=== PATIENT | female | born 1945 | race Caucasian/White ===

== ENCOUNTER → 2020-05-09 | Outpatient (CLI) | payer MEDICARE, OTHER ==
--- NOTE | 2020-05-09 09:51 | FL ---
EXAMINATION TYPE: FL sniff test without CXR DATE OF EXAM: 05/09/2020 COMPARISON: Outside chest x-ray May 02, 2020 HISTORY: Abnormal x-ray. Right diaphragm paralysis per order. History of right middle lobe collapse p er patient TECHNIQUE: Fluoroscopy assisted sniff test. FINDINGS: Fluoroscopic guidance was provided during the past procedure performed by myself. A total of 21 seconds of fluoroscopic time was utilized during the procedure and 27 spot images are acquired . There is elevated right hemidiaphragm. Dynamic imaging shows satisfactory motion of the left hemidiap hragm. Right hemidiaphragm shows absent motion. 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
== END | disposition home or self-care (01) ==
LOC: RADUSWWP 09:14
PROVIDERS: ATTEND Internal Medicine
DX: J98.6 Disorders of diaphragm (principal)
CPT/HCPCS: 76000

== ENCOUNTER → 2020-05-11 | Outpatient (CLI) | payer MEDICARE, OTHER ==
--- NOTE | 2020-05-11 19:49 | CT ---
EXAMINATION TYPE: CT chest w con DATE OF EXAM: 05/11/2020 COMPARISON: 05/02/2020 chest x-ray HISTORY: right pneumo CT DLP: 434.2 mGycm Automated exposure control for dose reduction was used. CONTRAST: CT scan of the chest is performed with IV Contrast, patient injected with 100 mL of Isovue 300. FINDINGS: LUNGS: There is marked elevation of the right hemidiaphragm with basilar consolidation likely in the basis of compressive atelectasis. No pneumothorax or pleural effusion. No localized area of suspiciou s for pneumonia. Pleural-based thickening at the left lung base laterally. MEDIASTINUM: There are no greater than 1 cm hilar or mediastinal lymph nodes. No pericardial effusi on is seen. Aorta of normal caliber. Coronary artery calcification. Correlate clinically. OTHER: Hypertrophic and degenerative changes of the spine. Low-attenuation throughout the liver sugg estive of hepatic steatosis. Inferior to the liver is a 4 mm nodule which is too small to characteriz e and could be followed on a short-term basis. IMPRESSION: 1. Marked right hemidiaphragm elevation with the basilar consolidation likely in the basis of hunter s[place] atelectasis. 2. Hepatic steatosis. There is an additional 4 mm soft tissue nodule just inferior to the lower [place] n of the liver too small to characterize and could be followed on short-term basis. 3. Coronary artery calcification.
== END | disposition home or self-care (01) ==
LOC: RADCTMAIN 16:41
PROVIDERS: ATTEND Internal Medicine
DX: J98.4 Other disorders of lung (principal); I25.10 Atherosclerotic heart disease of native coronary artery without angina pectoris
CPT/HCPCS: 82565; 84520; 71260; 36415; Q9967

== ENCOUNTER → 2022-09-23 | Outpatient (CLI) | payer MEDICARE, OTHER ==
--- NOTE | 2022-09-24 09:32 | MM ---
Reason for Exam: Screening (asymptomatic). Patient History: Menarche at age 13. First Full-Term at age 22. Postmenopausal. Risk Values: Loli 5 year model risk: 1.6%. NCI Lifetime model risk: 3.2%. Tissue Density: There are scattered fibroglandular densities. Findings: Analyzed By CAD. Benign-appearing right axillary lymph nodes. A few tiny benign-appearing round calcifications anteriorly in the right breast. There is no suspicious new group of microcalcifications or new suspicious mass in either breast. Overall Assessment: Negative, BI-RAD 1 Management: Screening Mammogram of both breasts in 1 year. A clinical breast exam by your physician is recommended on an annual basis and results should be correlated with mammographic findings. Electronically signed and approved by: Arden Conrad M.D.
== END | disposition home or self-care (01) ==
LOC: RADMAMWWP 13:52
PROVIDERS: ATTEND Family Medicine
DX: Z12.31 Encounter for screening mammogram for malignant neoplasm of breast (principal); Z78.0 Asymptomatic menopausal state
CPT/HCPCS: 77067

== ENCOUNTER 2025-04-30 17:16 | Observation (INO) | payer MEDICARE ==
--- NOTE | 2025-04-30 18:09 | ED ---
General Adult HPI - General Chief complaint: Chest Pain Stated complaint: Chest pain Time Seen by Provider: 04/30/25 17:45 Source: patient, RN notes reviewed Mode of arrival: wheelchair Limitations: no limitations - History of Present Illness Initial comments: Patient is a 80-year-old female present to the emergency department with concerns with chest discomfort. Patient just got back from a cruise. Patient was doing laundry when chest discomfort started. Discomfort improved with nitroglycerin and is currently rated 6/10. Discomfort feels like pressure with associated dyspnea. Patient did have a similar episode on the crew ship around a week ago. Patient does have history of previous OK around 1 week ago. - Related Data Allergies Allergy/AdvReac Type Severity Reaction Status Date / Time No Known Allergies Allergy Verified 04/30/25 17:23 Review of Systems ROS Statement: Those systems with pertinent positive or pertinent negative responses have been documented in the HPI. ROS Other: All systems not noted in ROS Statement are negative. 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 Absent: chest wall tenderness Cardiovascular Exam: Present: regular rate, normal rhythm, normal heart sounds Expanded Peripheral pulses: 2+: Radial (R), Radial (L), Posterior Tibialis (R), Posterior Tibialis (L) GI/Abdominal exam: Present: soft. Absent: tenderness Extremities exam: Present: normal inspection. Absent: pedal edema, calf tenderness Neurological exam: Present: alert Psychiatric exam: Present: normal affect, normal mood Skin exam: Present: normal color Course Vital Signs 04/30/25 04/30/25 17:18 20:40 Temperature 97.6 F 97.9 F Pulse Rate 60 Respiratory 18 Rate Blood Pressure 156/54 O2 Sat by Pulse 96 Oximetry EKG Findings - EKG Results: EKG: interpreted by ANGLED (Left axis. Q waves in multiple leads.), sinus rhythm, normal ST/T Medical Decision Making - Medical Decision Making Was pt. sent in by a medical professional or institution (, PA, INTAKE COORDINATOR, urgent care, hospital, or correction...) When possible be specific @ -No Did you speak to anyone other than the patient for history (EMS, parent, family, police, friend...)? What history was obtained from this source @ -No Did you review nursing and triage notes (agree or disagree)? Why? @ -I reviewed and agree with nursing and triage notes Were old charts reviewed (outside hosp., previous admission, EMS record, old EKG, old radiological studies, urgent care reports/EKG's, correction records)? Report findings @ -No old charts were reviewed Differential Diagnosis (chest pain, altered mental status, abdominal pain women, abdominal pain men, vaginal bleeding, weakness, fever, dyspnea, syncope, headache, dizziness, GI bleed, back pain, seizure, CVA, palpatations, mental health, musculoskeletal)? @ -Differential Chest Pain: Stable Angina, Unstable Angina, STEMI, NSTEMI Aortic Dissection, Pneumothorax, Musculoskeletal, Esophageal Spasm GERD, Cholecystitis, Pancreatitis, Zoster, this is not meant to be an all-inclusive list. EKG interpreted by me (3pts min.). @ -As above X-rays interpreted by me (1pt min.). @ -Chest ray shows no acute process. Elevated right hemidiaphragm CT interpreted by me (1pt min.). @ -CT chest without evidence of pulmonary embolism U/S interpreted by me (1pt. min.). @ -None done What testing was considered but not performed or refused? (CT, X-rays, U/S, labs)? Why? @ What meds were considered but not given or refused? Why? @ -None Did you discuss the management of the patient with other professionals (professionals i.e. , MORGAN, INTAKE COORDINATOR, lab, RT, psych nurse, director of social work, coach mechanic, teacher, sports development officer, caser shoe parts)? Give summary @ -Case was discussed with Dr. Gonzalez who will admit for Dr. noonan Was smoking cessation discussed for >3mins.? @ -No Was critical care preformed (if so, how long)? @ -No Were there social determinants of health that impacted care today? How? (Homelessness, low income, unemployed, alcoholism, drug addiction, transportat ion, low edu. Level, literacy, decrease access to med. care, fci, rehab)? @ -No Was there de-escalation of care discussed even if they declined (Discuss DNR or withdrawal of care, Hospice)? DNR status @ -No What co-morbidities impacted this encounter? (DM, HTN, Smoking, COPD, CAD, Cancer, CVA, ARF, Chemo, Hep., AIDS, mental health diagnosis, sleep apnea, morbid obesity)? @ -Coronary artery disease Was patient admitted / discharged? Hospital course, mention meds given and route, prescriptions, significant lab abnormalities, going to OR and other pertinent info. @ -Patient presents with chest discomfort, once last week and once today. On reevaluation symptoms had improved. Initial troponin unremarkable. CT scan chest pending. Patient will be admitted with cardiac consult. Patient r eevaluated and updated. Admission orders written Undiagnosed new problem with uncertain prognosis? @ -No Drug Therapy requiring intensive monitoring for toxicity (Heparin, Nitro, Insulin, Cardizem)? @ -No Were any procedures done? @ -No Diagnosis/symptom? @ -Chest pain Acute, or Chronic, or Acute on Chronic? @ -Acute Uncomplicated (without systemic symptoms) or Complicated (systemic symptoms)? @ -Default Side effects of treatment? @ -No Exacerbation, Progression, or Severe Exacerbation? @ -No Poses a threat to life or bodily function? How? (Chest pain, [place], [place], pneumonia, PE, COPD, DKA, ARF, appy, cholecystitis, CVA, Diverticulitis, Homicidal, Suicidal, threat to staff... and all critical care pts) @ -No - Lab Data Result diagrams: 04/30/25 18:41 04/30/25 18:41 Lab Results 04/30/25 04/30/25 04/30/25 Range/Units 18:41 18:41 18:41 WBC 5.37 (4.50-10.00) 10*3/uL RBC 4.91 (4.10-5.20) 10*6/uL Hgb 15.4 H (12.0-15.0) g/dL Hct 46.1 (37.2-46.3) % MCV 93.9 (80.0-97.0) fL MCH 31.4 (27.0-32.0) pg MCHC 33.4 (32.0-37.0) g/dL Plt Count 203 (140-440) 10*3/uL MPV 10.3 (9.5-12.2) fL Immature Gran % (Auto) 0.4 % Neutrophils % 61.1 % Lymphocytes % 21.0 % Monocytes % 11.2 % Eosinophils % 5.0 % Basophils % 1.3 % Immature Gran # 0.02 (0.00-0.04) 10*3/uL Neutrophils # 3.28 (1.80-7.70) 10*3/uL Lymphocytes # 1.13 (0.90-5.00) 10*3/uL Monocytes # 0.60 (0.20-1.00) 10*3/uL Eosinophils # 0.27 (0.04-0.35) 10*3/uL Basophils # 0.07 (0.00-0.10) 10*3/uL PT 11.6 (10.0-12.5) sec INR 1.1 (<1.2) APTT 23.6 (22.0-30.0) sec D-Dimer 0.88 H (<0.60) mg/L FEU Sodium 139 (137-145) mmol/L Potassium 4.3 (3.5-5.1) mmol/L Chloride 99 (98-107) mmol/L Carbon Dioxide 30 (22-30) mmol/L Anion Gap 10 mmol/L BUN 19 H (7-17) mg/dL Creatinine 0.87 (0.52-1.04) mg/dL Est GFR (CKD-EPI)AfAm 73 (>60 ml/min/1.73 sqM) Est GFR (CKD-EPI)NonAf 64 (>60 ml/min/1.73 sqM) Glucose 104 H (74-99) mg/dL Calcium 9.7 (8.4-10.2) mg/dL Magnesium 1.9 (1.6-2.3) mg/dL Total Bilirubin 1.1 (0.2-1.3) mg/dL AST 40 H (14-36) U/L ALT 27 (4-34) U/L Alkaline Phosphatase 136 H (38-126) U/L Troponin I (0.000-0.034) ng/mL Total Protein 7.1 (6.3-8.2) g/dL Albumin 4.0 (3.5-5.0) g/dL Amylase 43 (30-110) U/L Lipase 76 (23-300) U/L 04/30/25 Range/Units 18:41 WBC (4.50-10.00) 10*3/uL RBC (4.10-5.20) 10*6/uL Hgb (12.0-15.0) g/dL Hct (37.2-46.3) % MCV (80.0-97.0) fL MCH (27.0-32.0) pg MCHC (32.0-37.0) g/dL Plt Count (140-440) 10*3/uL MPV (9.5-12.2) fL Immature Gran % (Auto) % Neutrophils % % Lymphocytes % % Monocytes % % Eosinophils % % Basophils % % Immature Gran # (0.00-0.04) 10*3/uL Neutrophils # (1.80-7.70) 10*3/uL Lymphocytes # (0.90-5.00) 10*3/uL Monocytes # (0.20-1.00) 10*3/uL Eosinophils # (0.04-0.35) 10*3/uL Basophils # (0.00-0.10) 10*3/uL PT (10.0-12.5) sec INR (<1.2) APTT (22.0-30.0) sec D-Dimer (<0.60) mg/L FEU Sodium (137-145) mmol/L Potassium (3.5-5.1) mmol/L Chloride (98-107) mmol/L Carbon Dioxide (22-30) mmol/L Anion Gap mmol/L BUN (7-17) mg/dL Creatinine (0.52-1.04) mg/dL Est GFR (CKD-EPI)AfAm (>60 ml/min/1.73 sqM) Est GFR (CKD-EPI)NonAf (>60 ml/min/1.73 sqM) Glucose (74-99) mg/dL Calcium (8.4-10.2) mg/dL Magnesium (1.6-2.3) mg/dL Total Bilirubin (0.2-1.3) mg/dL AST (14-36) U/L ALT (4-34) U/L Alkaline Phosphatase (38-126) U/L Troponin I <0.012 (0.000-0.034) ng/mL Total Protein (6.3-8.2) g/dL Albumin (3.5-5.0) g/dL Amylase (30-110) U/L Lipase (23-300) U/L Disposition Clinical Impression: Chest pain Disposition: ADMITTED IP TO THIS HOSP Is patient prescribed a controlled substance at d/c from ED?: No Time of Disposition: 20:27
[2025-04-30] MEDS: NITROGLYCERIN OINT 1 INCH/GM PACKET TOPICAL STA (18:42)
[2025-04-30] MEDS: ASPIRIN 81 MG PO STA (18:42)
[2025-04-30 19:00] LABS: Basophils # (A) 0.07 10*3/uL (0.00-0.10); Basophils % (A) 1.3 %; Eosinophils # (A) 0.27 10*3/uL (0.04-0.35); Eosinophils % (A) 5.0 %; HCT 46.1 % (37.2-46.3); HGB 15.4 g/dL (12.0-15.0); Lymphocytes # (A) 1.13 10*3/uL (0.90-5.00); Lymphocytes % (A) 21.0 %; MCH 31.4 pg (27.0-32.0); MCHC 33.4 g/dL (32.0-37.0); MCV 93.9 fL (80.0-97.0); Monocytes # (A) 0.60 10*3/uL (0.20-1.00); Monocytes % (A) 11.2 %; Neutrophils # (A) 3.28 10*3/uL (1.80-7.70); Neutrophils % (A) 61.1 %; Platelet Count 203 10*3/uL (140-440); RBC 4.91 10*6/uL (4.10-5.20); RDW 13.8 % (11.5-14.5); WBC 5.37 10*3/uL (4.50-10.00)
[2025-04-30 19:21] LABS: INR 1.1 (<1.2); Partial Thromboplastin Time 23.6 sec (22.0-30.0); Prothrombin Time 11.6 sec (10.0-12.5)
[2025-04-30 19:25] LABS: ALT 27 U/L (4-34); AST 40 U/L (14-36); African American GFR (CKD) 73 (>60 ml/min/1.73 sqM); Albumin 4.0 g/dL (3.5-5.0); Alkaline Phosphatase 136 U/L (38-126); Amylase 43 U/L (30-110); Anion Gap 10 mmol/L; Blood Urea Nitrogen 19 mg/dL (7-17); Calcium 9.7 mg/dL (8.4-10.2); Carbon Dioxide 30 mmol/L (22-30); Chloride 99 mmol/L (98-107); Glucose 104 mg/dL (74-99); Lipase 76 U/L (23-300); Magnesium 1.9 mg/dL (1.6-2.3); Non-African American GFR(CKD) 64 (>60 ml/min/1.73 sqM); Potassium 4.3 mmol/L (3.5-5.1); Sodium 139 mmol/L (137-145); Total Protein 7.1 g/dL (6.3-8.2)
--- NOTE | 2025-04-30 19:34 | XR ---
EXAMINATION TYPE: XR chest 2V DATE OF EXAM: 04/30/2025 7:12 PM COMPARISON: Chest radiographs from 05/02/2020 CLINICAL INDICATION: Female, 80 years old with history of Chest Pain; [facility] TECHNIQUE: XR chest 2V Frontal and lateral views of the chest. FINDINGS: Lungs/Pleura: Similar elevated right diaphragm. There is no evidence of pleural effusion, focal conso lidation, or pneumothorax. Pulmonary vascularity: Unremarkable. Heart/mediastinum: Cardiomediastinal silhouette is unremarkable. Musculoskeletal: No acute osseous pathology. Other findings: None IMPRESSION: 1. No acute cardiopulmonary disease/process. 2. Elevated right diaphragm correlate for phrenic nerve injury., Similar to 2019. [facility], , 04/30/2025 7:32 PM
[2025-04-30] MEDS ORDERED: NITROGLYCERIN SL TABS 0.4 MG TAB SUBLINGUAL PRN (20:27)
--- NOTE | 2025-04-30 20:55 | CT ---
EXAMINATION TYPE: CT angio chest DATE OF EXAM: 04/30/2025 8:00 PM COMPARISON: 05/11/2020. CLINICAL INDICATION: Female, 80 years old with history of cp, ddimer .88; chest pain, elevated D-dime r TECHNIQUE/CONTRAST: CTA scan of the thorax is performed with IV Contrast, patient injected with 100 ml mL of Isovue 370, MIP images are created and reviewed these are created on a separate workstation.. CT DLP: 554.5 mGycm, Automated exposure control for dose reduction was used. FINDINGS: Lungs/Pleura: Elevated right diaphragm is seen on prior imaging. No evidence of focal consolidation, pleural effusion or pneumothorax. Airway: Large airways are patent. Heart: Size within normal limits. Mild coronary artery calcifications present. Thickening and calcif ication of aortic valve present. Vasculature: There is no evidence for a filling defect within the pulmonary vasculature to suggest ac [place] pulmonary embolism. The pulmonary artery is of normal size. Mediastinum: No gross evidence of adenopathy. Musculoskeletal: Moderate disc degeneration changes are present throughout the thoracolumbar spine se condary to osteophyte formation and facet joint arthropathy. Soft Tissues/lymph nodes: Unremarkable. Lower neck: No significant findings. Upper Abdomen: No significant findings. IMPRESSION: 1. No evidence of pulmonary embolism. 2. Mild coronary artery cusp patient's. 3. Mild to moderate aortic valve calcifications. 4. Reinsertion of elevated right diaphragm. [facility], , 04/30/2025 8:52 PM
[2025-05-01] MEDS: NITROGLYCERIN OINT 1 INCH/GM PACKET TOPICAL SCH (01:10)
[2025-05-01 07:57] LABS: Cholesterol 126.00 mg/dL (0.00-200.00); HDL Cholesterol 54.90 mg/dL (40.00-60.00); LDL Cholesterol,Calculated 51.7 mg/dL (0.0-131.0); Triglycerides 97.00 mg/dL (0.00-149.00); VLDL Calculation 19.40 mg/dL (5.00-40.00)
[2025-05-01] MEDS: LOSARTAN 50 MG TAB PO SCH (08:53)
[2025-05-01] MEDS: ASPIRIN 81 MG PO SCH (08:53)
[2025-05-01] MEDS: CLOPIDOGREL 75 MG TAB PO SCH (08:53)
[2025-05-01] MEDS: ATORVASTATIN 20 MG TAB PO SCH (08:54)
--- NOTE | 2025-05-01 08:54 | US ---
EXAMINATION TYPE: US gallbladder DATE OF EXAM: 05/01/2025 COMPARISON: CT Chest CLINICAL INDICATION: Female, 80 years old with history of fever, nausea; Pt states chest pressure TECHNIQUE: Grayscale and color Doppler imaging of the right upper quadrant was performed. FINDINGS: EXAM MEASUREMENTS: Liver Length: 14.7 cm Gallbladder Wall: 0.2 cm CBD: 0.5 cm Right Kidney: 9.3 x 5.1 x 5.4 cm SHAKER OPERATOR NOTES: Pancreas: Obscured by bowel gas Liver: Limited views due to malposition, however limited views appeared wnl Gallbladder: Difficult to visualize due to liver malposition, limited views appeared wnl Evidence for sonographic Johnson's sign: No CBD: wnl Right Kidney: No evidence of hydro IMPRESSION: 1. No evidence for acute process. 2. Hepatic steatosis. [facility], , 05/01/2025 8:51 AM
[2025-05-01] MEDS ORDERED: ASPIRIN 325 MG TAB PO SCH (09:00)
[2025-05-01] MEDS ORDERED: LOSARTAN 25 MG TAB PO SCH (09:00)
[2025-05-01] MEDS: PANTOPRAZOLE 40 MG/10 ML VIAL IVP SCH (11:13)
--- NOTE | 2025-05-01 11:15 | P.CRDCN ---
History of Present Illness History of present illness: HISTORY OF PRESENT ILLNESS: This is a 80-year-old male with a past medical history significant for hypertension, hyperlipidemia, coronary artery disease with previous stenting, and paralyzed diaphragm. Patient follows in the office with Dr. Orantes. We have been asked to see the patient in consultation for chest pain. Patient examined at the bedside. Patient states that she just returned from a cruise yesterday. She states that she had an episode about 5 days ago on the cruise ship where she had chest pain. She states that she went to bed and just slept it off. She states yesterday when she returned home she had an episode of chest pain. She describes it as a pressure type sensation. She denied any radiation of the pain. She does report having nausea. She states that she usually walks about a mile a day without any issues. She denies any known fever or chills. However the patient was noted to have a fever this morning of 100.3. Patients blood pressure has been elevated with a SBP greater than 150. DIAGNOSTICS: - EKG reveals sinus mechanism with no signs of acute ischemia. - Chest xray negative for acute process. Elevated right diaphragm similar to 2020. - CTA: Negative for pulmonary embolism - Current home cardiac medications include losartan 25 mg daily, aspirin 81 mg daily, Coreg 6.25 mg daily, rosuvastatin 10 mg daily, and Plavix 75 mg daily. - Most recent echocardiogram obtained in April 2024 revealed normal EF, mild MR, mild AR - Cardiac catheterization history: 2009 with PCI of the LAD and circumflex REVIEW OF SYSTEMS: At the time of my exam: CONSTITUTIONAL: Denies fever or chills. HEENT: Denies blurred vision, vision changes, or eye pain. Denies hemoptysis CARDIOVASCULAR: Denies chest pain. Denies orthopnea. Denies PND. Denies palpitations RESPIRATORY: Denies shortness of breath. GASTROINTESTINAL: Denies abdominal pain. Denies nausea or vomiting. HEMATOLOGIC: Denies bleeding disorders. GENITOURINARY: Denies any blood in urine. SKIN: Denies pruitis. Denies rash. PHYSICAL EXAM: VITAL SIGNS: Reviewed. GENERAL: Well-developed in no acute distress. HEENT: Head is normocephalic. Pupils are equal, round. Sclerae anicteric. Mucous membranes of the mouth are moist. Neck supple. No JVD or thyromegaly LUNGS: Respirations even and unlabored. Lungs essentially clear to auscultation bilaterally. HEART: Regular rate and rhythm. S1 and S2 heard. ABDOMEN: Soft. Nondistended. Nontender. EXTREMITIES: Normal range of motion. No clubbing or cyanosis. Peripheral pulses intact. No lower extremity edema NEUROLOGIC: Awake and alert. Oriented x 3. ASSESSMENT: Fever Chest pain, troponin negative x 3 Coronary artery disease with previous PCI of the LAD and circumflex, 2010 Hypertension Hyperlipidemia Chronically elevated right diaphragm Obesity: BMI 32.2 PLAN: An acute coronary event has been ruled out Obtain 2D echo to assess cardiac structure and function Increase losartan to 50 mg daily for optimal blood pressure control Increase carvedilol to twice a day dosing Obtain ultrasound of the gallbladder Obtain urinalysis Further recommendations pending patient course Nurse practitioner note has been reviewed by physician. Signing provider agrees with the documented findings, assessment, and plan of care documented by MACHINIST GENERAL as a scribe. 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 Last Myocardial Infarction Date:: 2009 History of Any Multi-Drug Resistant Organisms: None Reported Past Surgical History: Appendectomy, Heart Catheterization With Stent, Tonsillectomy Additional Past Surgical History / Comment(s): 2 stents 2009 Date of Last Stent Placement:: 2009 Past Psychological History: No Psychological Hx Reported Smoking Status: Never smoker Past Alcohol Use History: Occasional Past Drug Use History: None Reported Medications and Allergies Home Medications Medication Instructions Recorded Confirmed Type Aspirin EC [Ecotrin Low Dose] 81 mg PO DAILY 04/30/25 04/30/25 History Cholecalciferol [Vitamin D3 (125 125 mcg PO DAILY 04/30/25 04/30/25 History Mcg = 5000 Iu)] Clopidogrel [Plavix] 75 mg PO DAILY 04/30/25 04/30/25 History Losartan [Cozaar] 25 mg PO DAILY 04/30/25 04/30/25 History Rosuvastatin [Crestor] 10 mg PO DAILY 04/30/25 04/30/25 History Ubidecarenone [Q-Sorb Co Q-10] 200 mg PO DAILY 04/30/25 04/30/25 History carvediloL [Coreg] 6.25 mg PO DAILY 04/30/25 04/30/25 History Allergies Allergy/AdvReac Type Severity Reaction Status Date / Time atorvastatin [From Lipitor] AdvReac Elevated Verified 05/01/25 08:55 LFTs Physical Exam Vitals: Vital Signs Temp Pulse Pulse Resp BP BP Pulse Ox 05/01/25 07:18 100.3 F H 69 18 157/71 93 L 05/01/25 00:24 98.8 F 63 18 147/63 96 04/30/25 22:11 97.9 F 66 18 167/77 96 04/30/25 22:05 62 20 158/60 96 04/30/25 20:40 97.9 F 60 18 156/54 96 04/30/25 17:18 97.6 F Intake and Output 04/30/25 05/01/25 05/01/25 22:59 06:59 14:59 Intake Total 118 Balance 118 Intake: Oral 118 Other: Voiding Method Toilet # Voids 2 Weight 74.843 kg Results 04/30/25 18:41 04/30/25 18:41 Cardiac Enzymes 04/30/25 04/30/25 04/30/25 Range/Units 18:41 18:41 21:20 AST 40 H (14-36) U/L Troponin I <0.012 0.023 (0.000-0.034) ng/mL 05/01/25 Range/Units 00:45 AST (14-36) U/L Troponin I 0.027 (0.000-0.034) ng/mL Coagulation 04/30/25 Range/Units 18:41 PT 11.6 (10.0-12.5) sec APTT 23.6 (22.0-30.0) sec Lipids 04/30/25 Range/Units 23:30 Triglycerides 97.00 (0.00-149.00) mg/dL Cholesterol 126.00 (0.00-200.00) mg/dL HDL Cholesterol 54.90 (40.00-60.00) mg/dL Cholesterol/HDL Ratio 2.30 Ratio CBC 04/30/25 Range/Units 18:41 WBC 5.37 (4.50-10.00) 10*3/uL RBC 4.91 (4.10-5.20) 10*6/uL Hgb 15.4 H (12.0-15.0) g/dL Hct 46.1 (37.2-46.3) % Plt Count 203 (140-440) 10*3/uL Comprehensive Metabolic Panel 04/30/25 Range/Units 18:41 Sodium 139 (137-145) mmol/L Potassium 4.3 (3.5-5.1) mmol/L Chloride 99 (98-107) mmol/L Carbon Dioxide 30 (22-30) mmol/L BUN 19 H (7-17) mg/dL Creatinine 0.87 (0.52-1.04) mg/dL Glucose 104 H (74-99) mg/dL Calcium 9.7 (8.4-10.2) mg/dL AST 40 H (14-36) U/L ALT 27 (4-34) U/L Alkaline Phosphatase 136 H (38-126) U/L Total Protein 7.1 (6.3-8.2) g/dL Albumin 4.0 (3.5-5.0) g/dL Current Medications Generic Name Dose Route Start Last Admin Trade Name Freq PRN Reason Stop Dose Admin Aspirin 81 mg 05/01/25 09:00 05/01/25 08:53 Aspirin 81 Mg PO 81 mg DAILY STEVE Administration Atorvastatin Calcium 20 mg 05/01/25 09:00 05/01/25 08:54 Atorvastatin 20 Mg Tab PO Not Given DAILY STEVE Carvedilol 6.25 mg 05/01/25 08:15 05/01/25 08:53 Carvedilol 6.25 Mg Tab PO 6.25 mg BID-W/MEALS STEVE Administration Clopidogrel Bisulfate 75 mg 05/01/25 09:00 05/01/25 08:53 Clopidogrel 75 Mg Tab PO 75 mg DAILY STEVE Administration Losartan Potassium 50 mg 05/01/25 09:00 05/01/25 08:53 Losartan 50 Mg Tab PO 50 mg DAILY STEVE Administration Nitroglycerin 0.4 mg 04/30/25 20:27 Nitroglycerin Sl Tabs 0.4 Mg Tab SUBLINGUAL Q5M PRN Chest Pain Pantoprazole Sodium 40 mg 05/01/25 11:00 Pantoprazole 40 Mg/10 Ml Vial IVP DAILY STEVE Intake and Output 04/30/25 05/01/25 05/01/25 22:59 06:59 14:59 Intake Total 118 Balance 118 Intake: Oral 118 Other: Voiding Method Toilet # Voids 2 Weight 74.843 kg 04/30/25 18:41 04/30/25 18:41
[2025-05-01 11:41] LABS: Bilirubin,Urine Negative (Negative); Blood,Urine Negative (Negative); Color,Urine Light Yellow; Glucose,Urine (UA) Negative (Negative); Ketones,Urine Negative (Negative); Leukocyte Esterase,Urine Moderate (Negative); Mucus,Urine Rare /hpf; Nitrite,Urine Negative (Negative); PH, Urine 6.5 (5.0-8.0); Protein,Urine Negative (Negative); RBC,Urine 4 /hpf (0-5); Specific Gravity,Urine 1.032 (1.001-1.035); Squamous Epithelial Cell,Urine 2 /hpf (0-4); Urobilinogen,Urine <2.0 mg/dL (<2.0); WBC,Urine 9 /hpf (0-5)
--- NOTE | 2025-05-01 15:42 | P.HPIM ---
History of Present Illness Patient came in with the pressure-like chest pain in the midsternal area. Patient is admitted to rule out acute coronary syndromes EKG showed sinus rhythm without any acute ST-T wave changes. Patient's chest pain is nonpleuritic sabrina ent had a mildly elevated D-dimer although it is normal for her age. Patient returned from recent cruise ship. Patient had a CT angio of the chest which did not show any pulmonary embolism. Although patient has fever. Patient was complaining of generalized weakness denied any myalgias denied any upper respiratory symptoms. Patient recently returned from a cruise yesterday.. Patient denied any abdominal pain but does have mild tenderness in the right upper quadrant because of which ultrasound of the abdomen was obtained which did not show any cholecystitis. Patient is presently not on any antibiotics. Patient denied any cough or dysuria UA is not significant for UTI chest x-ray and CT angio did not show any pneumonia. REVIEW OF SYSTEMS: All other systems are negative except those mentioned in the HPI PHYSICAL EXAMINATION: GENERAL: The patient is alert and oriented x3, not in any acute distress. Well developed, well nourished. HEENT: Pupils are round and equally reacting to light. EOMI. No scleral icterus. No conjunctival pallor. Normocephalic, atraumatic. No pharyngeal erythema. No thyromegaly. CARDIOVASCULAR: S1 and S2 present. No murmurs, rubs, or gallops. PULMONARY: Chest is clear to auscultation, no wheezing or crackles. ABDOMEN: Soft, nontender, nondistended, normoactive bowel sounds. No palpable organomegaly. MUSCULOSKELETAL: No joint swelling or deformity. EXTREMITIES: No cyanosis, clubbing, or pedal edema. NEUROLOGICAL: Gross neurological examination did not reveal any focal deficits. SKIN: No rashes. Assessment and plan -Chest pain rule out acute coronary syndromes echocardiogram is being obtained as recommended by cardiology Coreg dose was increased and losartan dose was increased to control the blood pressure - Fever etiology is not clear can be viral, considering her abdominal tenderness in the right upper quadrant nausea vomiting, I cannot rule out cholecystitis despite of ultrasound will order HIDA scan. Infectious disease will be consulted as well blood cultures will be obtained. Will monitor off antibiotics. 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 Last Myocardial Infarction Date:: 2009 History of Any Multi-Drug Resistant Organisms: None Reported Past Surgical History: Appendectomy, Heart Catheterization With Stent, Tonsillectomy Additional Past Surgical History / Comment(s): 2 stents 2009 Date of Last Stent Placement:: 2009 Past Psychological History: No Psychological Hx Reported Smoking Status: Never smoker Past Alcohol Use History: Occasional Past Drug Use History: None Reported Medications and Allergies Home Medications Medication Instructions Recorded Confirmed Type Aspirin EC [Ecotrin Low Dose] 81 mg PO DAILY 04/30/25 04/30/25 History Cholecalciferol [Vitamin D3 (125 125 mcg PO DAILY 04/30/25 04/30/25 History Mcg = 5000 Iu)] Clopidogrel [Plavix] 75 mg PO DAILY 04/30/25 04/30/25 History Losartan [Cozaar] 25 mg PO DAILY 04/30/25 04/30/25 History Rosuvastatin [Crestor] 10 mg PO DAILY 04/30/25 04/30/25 History Ubidecarenone [Q-Sorb Co Q-10] 200 mg PO DAILY 04/30/25 04/30/25 History carvediloL [Coreg] 6.25 mg PO DAILY 04/30/25 04/30/25 History Allergies Allergy/AdvReac Type Severity Reaction Status Date / Time atorvastatin [From Lipitor] AdvReac Elevated Verified 05/01/25 08:55 LFTs Physical Exam Vitals: Vital Signs Temp Pulse Pulse Resp BP BP BP 05/01/25 11:16 101 F H 62 16 126/72 05/01/25 07:18 100.3 F H 69 18 157/71 05/01/25 00:24 98.8 F 63 18 147/63 04/30/25 22:11 97.9 F 66 18 167/77 04/30/25 22:05 62 20 158/60 04/30/25 20:40 97.9 F 60 18 156/54 04/30/25 17:18 97.6 F Pulse Ox 05/01/25 11:16 92 L 05/01/25 07:18 93 L 05/01/25 00:24 96 04/30/25 22:11 96 04/30/25 22:05 96 04/30/25 20:40 96 04/30/25 17:18 Intake and Output 05/01/25 05/01/25 05/01/25 06:59 14:59 22:59 Intake Total 118 Balance 118 Intake: Oral 118 Other: Voiding Method Toilet # Voids 2 Results CBC & Chem 7: 04/30/25 18:41 04/30/25 18:41 Labs: Abnormal Lab Results - Last 24 Hours (Table) 04/30/25 04/30/25 04/30/25 Range/Units 18:41 18:41 18:41 Hgb 15.4 H (12.0-15.0) g/dL D-Dimer 0.88 H (<0.60) mg/L FEU BUN 19 H (7-17) mg/dL Glucose 104 H (74-99) mg/dL AST 40 H (14-36) U/L Alkaline Phosphatase 136 H (38-126) U/L Ur Leukocyte Esterase (Negative) Urine WBC (0-5) /hpf Urine Mucus (None) /hpf 05/01/25 Range/Units 11:24 Hgb (12.0-15.0) g/dL D-Dimer (<0.60) mg/L FEU BUN (7-17) mg/dL Glucose (74-99) mg/dL AST (14-36) U/L Alkaline Phosphatase (38-126) U/L Ur Leukocyte Esterase Moderate H (Negative) Urine WBC 9 H (0-5) /hpf Urine Mucus Rare H (None) /hpf
[2025-05-01] MEDS: ACETAMINOPHEN TAB 325 MG TAB PO PRN (16:26)
[2025-05-01 17:37] LABS: RSV Not Detected (Not Detectd)
[2025-05-01 21:42] VITALS: RESP 16
--- NOTE | 2025-05-01 22:20 | P.CONS ---
History of Present Illness - Reason for Consult Consult date: 05/01/25 Fever of unknown origin Requesting physician: Becca Ross - Chief Complaint Weakness and chest pain x 1 day - History of Present Illness Patient is a 80-year-old female with a past medical history significant for [place] polio as a child recently came back from a cruise to [place] landed back in [place] on Thursday morning and presented to [facility] on ER t hat evening for evaluation of chest discomfort patient pain has been mostly in the lower sternal/epigastric area and describing it to be sharp moderate intensity with some improvement with the nitroglycerin patient did have some shortness of breath patient also have mild cough with some clear sputum did have some nausea but no vomiting abdominal pain no diarrhea constipation no urinary symptoms no joint swelling or lower extremity edema patient apparently did have similar symptoms about a week ago while she was on a cruise ship patient on presentation to the hospital was afebrile however she started spiking fever this morning with a temperature of 102.3 F this afternoon patient was not tach ycardic hypotensive or hypoxic no need for supplemental oxygen patient did have a normal white count of 5.37 creatinine 0.87 electrolytes has been normal AST was 40 ALT is normal amylase lipase has been normal urine has been mildly positive patient did have a chest x-ray no acute cardiopulmonary disease process did have a CT angiogram of the chest no evidence for PE no evidence for focal consolidation pleural effusion or pneumothorax gallbladder ultrasound no evidence for acute process hepatic steatosis infectious disease was consulted for fever of unknown origin Review of Systems Positive point and negatives has been mentioned in the HPI, complete review of systems was performed and all other systems are negative Past Medical History Past Medical History: Myocardial Infarction ([place]) Additional Past Medical History / Comment(s): 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, 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 Last Myocardial Infarction Date:: 2009 History of Any Multi-Drug Resistant Organisms: None Reported Past Surgical History: Appendectomy, Heart Catheterization With Stent, Tonsillectomy Additional Past Surgical History / Comment(s): 2 stents 2009 Date of Last Stent Placement:: 2009 Past Psychological History: No Psychological Hx Reported Smoking Status: Never smoker Past Alcohol Use History: Occasional Past Drug Use History: None Reported Medications and Allergies Home Medications Medication Instructions Recorded Confirmed Type Aspirin EC [Ecotrin Low Dose] 81 mg PO DAILY 04/30/25 04/30/25 History Cholecalciferol [Vitamin D3 (125 125 mcg PO DAILY 04/30/25 04/30/25 History Mcg = 5000 Iu)] Clopidogrel [Plavix] 75 mg PO DAILY 04/30/25 04/30/25 History Losartan [Cozaar] 25 mg PO DAILY 04/30/25 04/30/25 History Rosuvastatin [Crestor] 10 mg PO DAILY 04/30/25 04/30/25 History Ubidecarenone [Q-Sorb Co Q-10] 200 mg PO DAILY 04/30/25 04/30/25 History carvediloL [Coreg] 6.25 mg PO DAILY 04/30/25 04/30/25 History Allergies Allergy/AdvReac Type Severity Reaction Status Date / Time atorvastatin [From Lipitor] AdvReac Elevated Verified 05/01/25 08:55 LFTs Physical Exam Vitals: Vital Signs Temp Pulse Pulse Resp BP BP BP 05/01/25 11:16 101 F H 62 16 126/72 05/01/25 07:18 100.3 F H 69 18 157/71 05/01/25 00:24 98.8 F 63 18 147/63 04/30/25 22:11 97.9 F 66 18 167/77 04/30/25 22:05 62 20 158/60 04/30/25 20:40 97.9 F 60 18 156/54 04/30/25 17:18 97.6 F Pulse Ox 05/01/25 11:16 92 L 05/01/25 07:18 93 L 05/01/25 00:24 96 04/30/25 22:11 96 04/30/25 22:05 96 04/30/25 20:40 96 04/30/25 17:18 Intake and Output 05/01/25 05/01/25 05/01/25 06:59 14:59 22:59 Intake Total 118 Balance 118 Intake: Oral 118 Other: Voiding Method Toilet # Voids 2 GENERAL DESCRIPTION: Elderly female lying in bed, no distress. No tachypnea or accessory muscle of respiration use. HEENT: Shows Pallor , no scleral icterus. Oral mucous membrane is dry. No pharyngeal erythema or thrush NECK: Trachea central, no thyromegaly. LUNGS: Unlabored breathing. Clear to auscultation anteriorly. No wheeze or crackle. HEART: S1, S2, regular rate and rhythm. No loud murmur ABDOMEN: Soft, no tenderness , guarding or rigidity, no organomegaly EXTREMITIES: No edema of feet. SKIN: No rash, no masses palpable. NEUROLOGICAL: The patient is awake, alert, oriented x3, mood and affect normal. Results CBC & Chem 7: 04/30/25 18:41 04/30/25 18:41 Labs: Abnormal Lab Results - Last 24 Hours (Table) 04/30/25 04/30/25 04/30/25 Range/Units 18:41 18:41 18:41 Hgb 15.4 H (12.0-15.0) g/dL D-Dimer 0.88 H (<0.60) mg/L FEU BUN 19 H (7-17) mg/dL Glucose 104 H (74-99) mg/dL AST 40 H (14-36) U/L Alkaline Phosphatase 136 H (38-126) U/L Ur Leukocyte Esterase (Negative) Urine WBC (0-5) /hpf Urine Mucus (None) /hpf 05/01/25 Range/Units 11:24 Hgb (12.0-15.0) g/dL D-Dimer (<0.60) mg/L FEU BUN (7-17) mg/dL Glucose (74-99) mg/dL AST (14-36) U/L Alkaline Phosphatase (38-126) U/L Ur Leukocyte Esterase Moderate H (Negative) Urine WBC 9 H (0-5) /hpf Urine Mucus Rare H (None) /hpf Assessment and Plan (1) Fever Current Visit: Yes Status: Acute Code(s): R50.9 - FEVER, UNSPECIFIED SNOMED Code(s): 215637288 Plan: 1patient presented hospital with chest pain/epigastric area pain in this patient subsequent evaluating a fever patient recently came back from an [place] cruise in this patient with no white count does not look toxic concern for possible viral syndrome and a question of COVID-19 need to be excluded as the patient has been in a crowded environment on a cruise ship 2-we will obtain nasopharyngeal swab for COVID-19 influenza 3-for now we will monitor closely off antibiotic therapy as clinical suspicion low for bacterial infection Daughter at the bedside multiple question answered We will follow on clinical condition and cultures to further adjust medication if needed Thank you for this consultation we will follow the patient along with you Dictation was produced using [employer] dictation software. please excuse any grammatical, word or spelling errors. Time with Patient: Greater than 30
[2025-05-02 08:19] VITALS: BP 167/98; PULSE 62; TEMP 99.1
[2025-05-02 08:29] LABS: HCT 43.5 % (37.2-46.3); HGB 14.3 g/dL (12.0-15.0); MCH 31.4 pg (27.0-32.0); MCHC 32.9 g/dL (32.0-37.0); MCV 95.6 FL (80.0-97.0); NRBC Per 100 WBC 0 X 10*3/uL (0.00-0.01); Platelet Count 143 X 10*3/uL (140-440); RBC 4.55 X 10*6/uL (4.10-5.20); RDW 14.1 % (11.5-14.5); WBC 3.44 X 10*3/uL (4.50-10.00)
--- NOTE | 2025-05-02 09:58 | NM ---
EXAMINATION TYPE: NM hepatobiliary w CCK DATE OF EXAM: 05/02/2025 9:34 AM COMPARISON: Ultrasound most recent 05/01/2025. CLINICAL INDICATION:Female, 80 years old with history of Epigastric pain; TECHNIQUE: The patient was given 4.94 mCi of Technetium 99m-Mebrofenin as a radiotracer and multiple scintigraphic images were obtained of the abdomen. Gallbladder function was also assessed after the administration of 1.5 mcg of Kinevac (cholecystokinin) and additional scintigraphic images were obtai tony of the abdomen. A region of interest was drawn over the gallbladder and a timing activity curve w as generated. The gallbladder ejection fraction was calculated. Kinevac: 1.5 mcg FINDINGS: Normal uptake of radiotracer was identified within the liver with excretion into the hepatic and comm on biliary ducts within 14 min. There was normal progressive washout of the liver over the course of the study. Radiotracer uptake within the gallbladder at 48 minutes as well as small bowel activity wa s identified at 60 minutes. Maximum calculated gallbladder ejection fraction is: 26% at 29 minutes (Normal gallbladder ejection fraction is > 35%) IMPRESSION: 1. Normal hepatobiliary scan. 2. Low ejection fraction suggestive of impaired gallbladder emptying and gallbladder dysfunction.] [facility], , 05/02/2025 9:55 AM
[2025-05-02] MEDS: ENOXAPARIN 40 MG/0.4 ML SYRINGE SQ SCH (10:30)
--- NOTE | 2025-05-02 11:35 | CA ---
Transthoracic Echo Report Name: Samara Stone Age: 80 Gender: F : 1945 Exam Date: 05/02/2025 09:13 Exam Location: [facility] Ht (in): 60 Wt (lb): 165 Ordering Physician: Morena Barry Attending/Referring Phys: [id number], Jhonny Associate Dean [employer] Eloisa Murguia, KAILYN Procedure CPT: Indications: Chest pain, hx of CAD Cardiac Hx: Technical Quality: Poor, Technically difficult study, Cpvid + Contrast 1: Total Dose (mL): Contrast 2: Total Dose (mL): MEASUREMENTS (Male / Female) Normal Values 2D ECHO LV Diastolic Diameter PLAX 3.7 cm 4.2 - 5.9 / 3.9 - 5.3 cm LV Systolic Diameter PLAX 2.9 cm IVS Diastolic Thickness 1.4 cm 0.6 - 1.0 / 0.6 - 0.9 cm LVPW Diastolic Thickness 1.3 cm 0.6 - 1.0 / 0.6 - 0.9 cm LV Relative Wall Thickness 0.7 RV Internal Dim ED PLAX 2.3 cm LVOT Diameter 1.8 cm LA Systolic Diameter LX 4.4 cm 3.0 - 4.0 / 2.7 - 3.8 cm M-MODE Aortic Root Diameter MM 2.6 cm LA Systolic Diameter MM 4.3 cm LA Ao Ratio MM 1.6 AV Cusp Separation MM 1.2 cm DOPPLER AV Peak Velocity 207.5 cm/s AV Peak Gradient 17.2 mmHg AV Mean Velocity 152.8 cm/s AV Mean Gradient 10.3 mmHg AV Velocity Time Integral 44.2 cm AI Peak Velocity 328.7 cm/s AI Peak Gradient 43.2 mmHg AI Pressure Half Time 897.2 ms LVOT Peak Velocity 101.9 cm/s LVOT Peak Gradient 4.2 mmHg LVOT Velocity Time Integral 27.0 cm LVOT Stroke Volume 65.0 cm??? LVOT Stroke Volume Index 37.8 ml/m??? LVOT Cardiac Index 2295.8 cm???/min???m??? AV Area Cont Eq vti 1.5 cm??? AV Area Cont Eq pk 1.2 cm??? MV Area PHT 2.1 cm??? Mitral E Point Velocity 67.3 cm/s Mitral A Point Velocity 127.3 cm/s Mitral E to A Ratio 0.5 MV Deceleration Time 362.1 ms TR Peak Velocity 248.8 cm/s TR Peak Gradient 24.8 mmHg FINDINGS Left Ventricle Left ventricular ejection fraction is estimated at 45-50%. Moderately increased septal wall thickness. Moderately increased posterior wall thickness. Left ventricular wall thickness normal. [place] hypokinetic. Right Ventricle Normal right ventricular size and function. Right ventricular systolic pressure within normal limits. Right Atrium Normal right atrial size. Left Atrium Moderately increased left atrial diameter. Mitral Valve Mitral valve thickened. Mitral annular calcification. Mild mitral regurgitation. No mitral stenosis. Aortic Valve Mild aortic stenosis with a peak gradient of 17 mmHg and a mean gradient of 10 mmHg. Trileaflet aortic valve. Mild aortic regurgitation. Tricuspid Valve Structurally normal tricuspid valve. Trace to mild tricuspid regurgitation. No tricuspid stenosis. Pulmonic Valve Structurally normal pulmonic valve. No pulmonic stenosis. Trace pulmonic regurgitation. Pericardium No pericardial or pleural effusion. Aorta Normal size aortic root and proximal ascending aorta. CONCLUSIONS Mildly impaired LV function with EF at 45 to 50% with apical hypokinesia Aortic sclerosis with mild aortic stenosis Thickened mitral valve leaflets with mild MR Previewed by: Dr. Todd Orantes MD (Electronically Signed) Final Date: 02 May 2025 11:34
--- NOTE | 2025-05-02 11:39 | P.PN ---
Subjective HISTORY OF PRESENT ILLNESS: This is a 80-year-old male with a past medical history significant for hypertension, hyperlipidemia, coronary artery disease with previous stenting, and paralyzed diaphragm. Patient follows in the office with Dr. Orantes. We have been asked to see the patient in consultation for chest pain. Patient examined at the bedside. Patient states that she just returned from a cruise yesterday. She states that she had an episode about 5 days ago on the cruise ship where she had chest pain. She states that she went to bed and just slept it off. She states yesterday when she returned home she had an episode of chest pain. She describes it as a pressure type sensation. She denied any radiation of the pain. She does report having nausea. She states that she usually walks about a mile a day without any issues. She denies any known fever or chills. However the patient was noted to have a fever this morning of 100.3. Patients blood pressure has been elevated with a SBP greater than 150. DIAGNOSTICS: - EKG reveals sinus mechanism with no signs of acute ischemia. - Chest xray negative for acute process. Elevated right diaphragm similar to 2019. - CTA: Negative for pulmonary embolism - Current home cardiac medications include losartan 25 mg daily, aspirin 81 mg daily, Coreg 6.25 mg daily, rosuvastatin 10 mg daily, and Plavix 75 mg daily. - Most recent echocardiogram obtained in April 2024 revealed normal EF, mild MR, mild AR - Cardiac catheterization history: 2009 with PCI of the LAD and circumflex 05/02/2025 Patient examined this morning the bedside. Patient currently denies chest pain or pressure. She denies shortness of breath. Patient was found to be positive for COVID. Echocardiogram performed revealing ejection fraction 45 to 50%, apex hypokinetic, mild aortic stenosis. PHYSICAL EXAM: VITAL SIGNS: Reviewed. GENERAL: Well-developed in no acute distress. HEENT: Head is normocephalic. Pupils are equal, round. Sclerae anicteric. Mucous membranes of the mouth are moist. Neck supple. No JVD or thyromegaly LUNGS: Respirations even and unlabored. Lungs essentially clear to auscultation bilaterally. HEART: Regular rate and rhythm. S1 and S2 heard. ABDOMEN: Soft. Nondistended. Nontender. EXTREMITIES: Normal range of motion. No clubbing or cyanosis. Peripheral pulses intact. No lower extremity edema NEUROLOGIC: Awake and alert. Oriented x 3. ASSESSMENT: Fever Acute COVID-19 Chest pain, troponin negative x 3 Coronary artery disease with previous PCI of the LAD and circumflex, 2010 Hypertension Hyperlipidemia Chronically elevated right diaphragm Obesity: BMI 32.2 PLAN: Continue current cardiac medications Will plan for outpatient stress testing No further inpatient recommendations from a cardiac standpoint We will sign off. Please reconsult if needed. Nurse practitioner note has been reviewed by physician. Signing provider agrees with the documented findings, assessment, and plan of care documented by CUSTOMER SERVICE ATTENDANT as a scribe. Objective - Vital Signs Vital signs: Vital Signs Temp 99.1 F 05/02/25 07:00 Pulse 62 05/02/25 07:00 Resp 16 05/02/25 07:00 BP 167/98 05/02/25 07:00 Pulse Ox 95 05/02/25 07:00 FiO2 Intake & Output 05/01/25 05/02/25 05/02/25 18:59 06:59 18:59 Intake Total 118 Balance 118 Intake: Oral 118 Other: Voiding Method Toilet Toilet # Voids 1 1 - Labs CBC & Chem 7: 05/02/25 05:51 04/30/25 18:41 Labs: Abnormal Lab Results - Last 24 Hours (Table) 05/01/25 05/01/25 05/02/25 Range/Units 11:24 16:50 05:51 WBC 3.44 L (4.50-10.00) X 10*3/uL Ur Leukocyte Esterase Moderate H (Negative) Urine WBC 9 H (0-5) /hpf Urine Mucus Rare H (None) /hpf SARS-CoV-2 (PCR) Detected A (Not Detectd)
--- NOTE | 2025-05-02 15:45 | P.DS ---
Providers Date of admission: 04/30/25 20:30 Attending physician: Efrain Gonzalez MD Consults: 05/01/25 12:47 Consult Physician Urgent Consulting Provider: Lidia Stringer Consult Reason/Comments: fever of unknown origin Do you want consulting provider notified?: Yes Primary care physician: Ferdinand Angel MD Hospital Course: Discharge Diagnosis: Acute COVID-19 Fevers Chest pain, troponin negative x 3 Coronary artery disease with previous PCI of the LAD and circumflex, 2010 Hypertension Hyperlipidemia Chronically elevated right diaphragm Obesity, BMI 32.2 Hospital Course: HPI: Patient came in with the pressure-like chest pain in the midsternal area. Patient is admitted to rule out acute coronary syndromes EKG showed sinus rhythm without any acute ST-T wave changes. Patient's chest pain is nonpleuritic patient had a mildly elevated D-dimer although it is normal for her age. Patient returned from recent cruise ship. Patient had a CT angio of the chest which did not show any pulmonary embolism. Although patient has fever. Patient was complaining of generalized weakness denied any myalgias denied any upper respiratory symptoms. Patient recently returned from a cruise yesterday.. Patient denied any abdominal pain but does have mild tenderness in the right upper quadrant because of which ultrasound of the abdomen was obtained which did not show any cholecystitis. Patient is presently not on any antibiotics. Patient denied any cough or dysuria UA is not significant for UTI chest x-ray and CT angio did not show any pneumonia. Patient was admitted to the hospital for further workup of chest pain and fevers with consult to cardiology and infectious disease. While admitted to the hospital the patient's home blood pressure medications were modified with increased to losartan to 50 mg daily as well as carvedilol increased to twice a day dosing. Patient was complaining of some abdominal pain and an ultrasound of the gallbladder was ordered which showed no acute process, as well as a HIDA scan which showed normal hepatobiliary scan and low ejection fraction suggestive of impaired gallbladder emptying and gallbladder dysfunction. Patient underwent further testing including a viral panel which was positive for COVID-19 which likely explain the fevers the patient was having. These fevers were controlled with Tylenol and supportive care. Patient also underwent echo which showed mildly impaired LV function with EF at 45 to 50% with apical hypokinesia, aortic sclerosis with mild aortic stenosis, thickened mitral valve leaflets and mild MR. At time of discharge, patient was hemodynamically stable, no longer complaining of abdominal pain or chest pain. Patient was advised to follow-up with her PCP and neighborhood aide in 1 week. Pt seen and examined at bedside: No overnight events, no complaints or concerns this time for the patient. Vital signs reveiwed and stable: GENERAL: The patient is alert and oriented x3, not in any acute distress. Well developed, well nourished. HEENT: Pupils are round and equally reacting to light. EOMI. No scleral icterus. No conjunctival pallor. Normocephalic, atraumatic. No pharyngeal erythema. No thyromegaly. CARDIOVASCULAR: S1 and S2 present. No murmurs, rubs, or gallops. PULMONARY: Chest is clear to auscultation, no wheezing or crackles. ABDOMEN: Soft, nontender, nondistended, normoactive bowel sounds. No palpable organomegaly. MUSCULOSKELETAL: No joint swelling or deformity. EXTREMITIES: No cyanosis, clubbing, or pedal edema. NEUROLOGICAL: Gross neurological examination did not reveal any focal deficits. SKIN: No rashes. A total of greater than 30 minutes were spent preparing this complex discarge summary. Patient was discharged on 05/02/2025. Patient Condition at Discharge: Fair Plan - Discharge Summary Discharge Rx Participant: No New Discharge Prescriptions: New carvediloL [Coreg] 6.25 mg PO BID #60 tablet Losartan [Cozaar] 50 mg PO DAILY #30 tab Continue Cholecalciferol [Vitamin D3 (125 Mcg = 5000 Iu)] 125 mcg PO DAILY Rosuvastatin [Crestor] 10 mg PO DAILY Ubidecarenone [Q-Sorb Co Q-10] 200 mg PO DAILY Aspirin EC [Ecotrin Low Dose] 81 mg PO DAILY Clopidogrel [Plavix] 75 mg PO DAILY Changed carvediloL [Coreg] 6.25 mg PO BID #0 Losartan [Cozaar] 50 mg PO DAILY #0 Discharge Medication List Aspirin EC [Ecotrin Low Dose] 81 mg PO DAILY 04/30/25 [History] Cholecalciferol [Vitamin D3 (125 Mcg = 5000 Iu)] 125 mcg PO DAILY 04/30/25 [History] Clopidogrel [Plavix] 75 mg PO DAILY 04/30/25 [History] Rosuvastatin [Crestor] 10 mg PO DAILY 04/30/25 [History] Ubidecarenone [Q-Sorb Co Q-10] 200 mg PO DAILY 04/30/25 [History] Losartan [Cozaar] 50 mg PO DAILY #0 05/02/25 [Rx] Losartan [Cozaar] 50 mg PO DAILY #30 tab 05/02/25 [Rx] carvediloL [Coreg] 6.25 mg PO BID #0 05/02/25 [Rx] carvediloL [Coreg] 6.25 mg PO BID #60 tablet 05/02/25 [Rx] Follow up Appointment(s)/Referral(s): Todd Orantes MD [STAFF PHYSICIAN] - 1 Week ([facility] will call patient with appointment date and time.) Ferdinand Angel MD [Primary Care Provider] - 1-2 days Patient Instructions/Handouts: Chest Pain (DC), COVID-19 (Coronavirus Disease 2019) (DC) Discharge Disposition: HOME SELF-CARE
--- NOTE | 2025-05-02 16:33 | P.PN ---
Subjective Progress Note Date: 05/02/25 Principal diagnosis: Reason for follow-up is fever/COVID-19 Patient is a 80-year-old female with a past medical history significant for [place] polio as a child recently came back from a cruise to [place] landed back in [place] on Thursday morning and presented to [facility] on ER that evening for evaluation of chest discomfort patient did have a negative CT angiogram of chest did have a fever prompting this consultation. On today's evaluation that is 05/02/2025, Patient is afebrile this morning patient denies having any chest pain shortness of breath or cough, the patient is currently on room air, patient denies any abdominal pain no diarrhea no nausea no vomiting patient feeling better. Patient white count is 3.44 SARS-CoV-2 PCR was positive Objective - Vital Signs Vital signs: Vital Signs Temp 99.1 F 05/02/25 07:00 Pulse 62 05/02/25 07:00 Resp 16 05/02/25 07:00 BP 167/98 05/02/25 07:00 Pulse Ox 95 05/02/25 07:00 FiO2 Intake & Output 05/01/25 05/02/25 05/02/25 18:59 06:59 18:59 Intake Total 118 1160 Balance 118 1160 Intake: Oral 118 1160 Other: Voiding Method Toilet Toilet # Voids 1 1 - Exam GENERAL DESCRIPTION: An elderly female lying in bed in no distress RESPIRATORY SYSTEM: Unlabored breathing , decreased breath sounds at bases HEART: S1 S2 regular rate and rhythm , ABDOMEN: Soft , no tenderness EXTREMITIES: No edema feet - Labs CBC & Chem 7: 05/02/25 05:51 04/30/25 18:41 Labs: Abnormal Lab Results - Last 24 Hours (Table) 05/01/25 05/02/25 Range/Units 16:50 05:51 WBC 3.44 L (4.50-10.00) X 10*3/uL SARS-CoV-2 (PCR) Detected A (Not Detectd) Assessment and Plan (1) Fever Status: Acute Code(s): R50.9 - FEVER, UNSPECIFIED SNOMED Code(s): 600464122 (2) COVID-19 Status: Acute Code(s): U07.1 - COVID-19 SNOMED Code(s): 430532132 Plan: 1patient presented hospital with chest pain/epigastric area pain in this patient subsequent evaluating a fever patient recently came back from an [place] cruise in this patient with no white count does not look toxic concern for possible viral syndrome and a question of COVID-19 need to be excluded as the patient has been in a crowded environment on a cruise ship 2-patient did have a positive nasopharyngeal swab for COVID-19 likely etiology of her fever and treatment is mostly supportive/symptomatic as there was no evidence of any pneumonia on the CT angiogram of the chest multiple question concerns were answered Dictation was produced using [employer] dictation software. please excuse any grammatical, word or spelling errors. Time with Patient: Less than 30
== END 2025-05-02 14:30 | disposition home or self-care (01) ==
LOC: EC 17:16 → 6NMEDSUR 20:29 → INTOOBSV 20:30 → OBSVTOIN 20:30 → 6NMEDSUR 21:20
PROVIDERS: ADMIT Internal Medicine; ATTEND Internal Medicine
DX: U07.1 COVID-19 (principal); R07.89 Other chest pain; I10 Essential (primary) hypertension; E78.5 Hyperlipidemia, unspecified; I25.10 Atherosclerotic heart disease of native coronary artery without angina pectoris; J98.6 Disorders of diaphragm; I25.2 Old myocardial infarction; E66.9 Obesity, unspecified; Z68.32 Body mass index [BMI] 32.0-32.9, adult; Z95.5 Presence of coronary angioplasty implant and graft; Z79.82 Long term (current) use of aspirin; Z79.02 Long term (current) use of antithrombotics/antiplatelets; Z79.899 Other long term (current) drug therapy
CPT/HCPCS: 36415; 71046; 71275; 76705; 78227; 80053; 80061; 81001; 82150; 83690; 83735; 84484; 85025; 85027; 85379; 85610; 85730; 87040; 87636; 93005; 93306; 96374; 99285